=== PATIENT | female | born 1970 | race Caucasian/White ===

== ENCOUNTER 2024-11-19 13:49 | Outpatient (CLI) | payer OTHER | END 2024-11-19 13:50 | disposition home or self-care (01) | LOC: CSHMRI 13:49 | PROVIDERS: ATTEND Neurological Surgery | DX: C71.9 Malignant neoplasm of brain, unspecified (principal); G93.9 Disorder of brain, unspecified; Z98.890 Other specified postprocedural states | CPT/HCPCS: 70553; 76376 ==